=== PATIENT | male | born 1980 | race American Indian/Alaskan Native ===

== ENCOUNTER 2020-09-01 10:27 | Emergency (ER) | payer SELFPAY ==
[2020-09-01 10:37] VITALS: BP 160/105
--- NOTE | 2020-09-01 10:41 | Emergency Department Report ---
Blank Doc - Documentation Documentation: 40-year-old male that presents with abdominal pain with n/v. This initial assessment/diagnostic orders/clinical plan/treatment(s) is/are subject to change based on patient's health status, clinical progression and re- assessment by fellow clinical providers in the ED. Further treatment and workup at subsequent clinical providers discretion. Patient/guardians urged not to elope from the ED as their condition may be serious if not clinically assessed and managed. Initial orders include: 1- Patient sent to [facility] for further evaluation and treatment 2- labs 3- UA
[2020-09-01 11:28] LABS: Basophils % (Auto) 0.5 % (0.0-1.8); Eosinophils % (Auto) 0.1 % (0.0-4.3); Hematocrit 53.4 % (35.5-45.6); Lymphocytes # (Auto) 2.8 K/mm3 (1.2-5.4); Mean Corpuscular HGB Conc 34 % (32-34); Mean Corpuscular Volume 99 fl (84-94); Monocytes % (Auto) 9.6 % (0.0-7.3); Platelet Count 190 K/mm3 (140-440); Red Blood Count 5.41 M/mm3 (3.65-5.03); Red Cell Distribution Width 13.6 % (13.2-15.2)
[2020-09-01] MEDS ORDERED: ONDANSETRON 4 MG/2 ML INJ IV ONE ×2 (11:34→23:45)
--- NOTE | 2020-09-01 11:37 | Emergency Department Report ---
<JUAN JOHNSON - Last Filed: 09/01/20 18:29> ED Abdominal Pain HPI - General Chief Complaint: Abdominal Pain Stated Complaint: INTENSE ACID REFLUX PAIN Time Seen by Provider: 09/01/20 10:39 Source: patient Mode of arrival: Ambulatory Limitations: No Limitations - History of Present Illness Initial Comments: 40-year-old -[place] male presents to the emergency room complaining of nausea vomiting abdominal pain, sore throat headache and body aches. Patient denies any EtOH use. He denies any fever or chills but does admit to hot and cold sweats. Patient states he has a history of gastritis and will be taking Pr ilosec and Nexium at home. Patient does admit to smoking weed daily and hot showers does make it better. Patient denies any primary care provider at this time. MD Complaint: abdominal pain Location: diffuse Radiation: none Migration to: no migration Severity scale (0 -10): 9 Quality: sharp, burning Consistency: intermittent Improves With: nothing Worsens With: eating Associated Symptoms: nausea, vomiting - Related Data Previous Rx's Medication Instructions Recorded Last Taken Type Dicyclomine [Bentyl] 20 mg PO Q6H PRN #30 tablet 09/01/20 Unknown Rx Famotidine [Pepcid] 20 mg PO BID #60 tablet 09/01/20 Unknown Rx Omeprazole 40 mg PO DAILY #30 capsule.dr 09/01/20 Unknown Rx Ondansetron [Zofran Odt] 4 mg PO Q6HR PRN #24 tab.rapdis 09/01/20 Unknown Rx Promethazine [Phenergan] 25 mg [place] Q6HR PRN #12 supp.rect 09/01/20 Unknown Rx Allergies Allergy/AdvReac Type Severity Reaction Status Date / Time No Known Allergies Allergy Verified 09/01/20 10:37 ED Review of Systems Comment: All other systems reviewed and negative ED Past Medical Hx - Past Medical History Previous Medical History?: No - Surgical History Past Surgical History?: No - Social History Smoking Status: Never Smoker Substance Use Type: None - Medications Home Medications: Home Medications Medication Instructions Recorded Confirmed Last Taken Type Dicyclomine [Bentyl] 20 mg PO Q6H PRN #30 tablet 09/01/20 Unknown Rx Famotidine [Pepcid] 20 mg PO BID #60 tablet 09/01/20 Unknown Rx Omeprazole 40 mg PO DAILY #30 capsule.dr 09/01/20 Unknown Rx Ondansetron [Zofran Odt] 4 mg PO Q6HR PRN #24 tab.rapdis 09/01/20 Unknown Rx Promethazine [Phenergan] 25 mg [place] Q6HR PRN #12 supp.rect 09/01/20 Unknown Rx ED Physical Exam - General Limitations: No Limitations General appearance: alert, in no apparent distress - Head Head exam: Present: atraumatic, normocephalic - Eye Eye exam: Present: normal appearance - ENT ENT exam: Present: mucous membranes moist - Neck Neck exam: Present: normal inspection - Respiratory Respiratory exam: Present: normal lung sounds bilaterally. Absent: respiratory distress - Cardiovascular Cardiovascular Exam: Present: regular rate, normal rhythm. Absent: systolic murmur, diastolic murmur, rubs, gallop - GI/Abdominal GI/Abdominal exam: Present: soft. Absent: distended, tenderness, guarding ED Medical Decision Making - Lab Data Result diagrams: 09/01/20 11:15 09/01/20 11:15 Laboratory Results - last 72 hr 09/01/20 09/01/20 09/01/20 11:15 11:15 11:15 WBC 10.3 RBC 5.41 H Hgb 18.0 H Hct 53.4 H MCV 99 H MCH 33 H MCHC 34 RDW 13.6 Plt Count 190 Lymph % (Auto) 27.0 [place] % (Auto) 9.6 H Eos % (Auto) 0.1 Baso % (Auto) 0.5 Lymph # (Auto) 2.8 [place] # (Auto) 1.0 H Eos # (Auto) 0.0 Baso # (Auto) 0.0 Seg Neutrophils % 62.8 Seg Neutrophils # 6.5 Sodium 138 Potassium 3.5 L Chloride 90.9 L Carbon Dioxide 35 H Anion Gap 16 BUN 6 L Creatinine 0.9 Estimated GFR > 60 BUN/Creatinine Ratio 7 Glucose 120 H Calcium 9.8 Total Bilirubin 1.20 AST 41 H ALT 32 Alkaline Phosphatase 72 Total Creatine Kinase 122 Total Protein 9.3 H Albumin 4.3 Albumin/Globulin Ratio 0.9 Lipase 17 Urine Color Urine Turbidity Urine pH Ur Specific [place] Urine Protein Urine Glucose (UA) Urine Ketones Urine Blood Urine Nitrite Urine Bilirubin Urine Ictotest Urine Urobilinogen Ur Leukocyte Esterase Urine WBC (Auto) Urine RBC (Auto) U Epithel Cells (Auto) Hyaline Casts Urine Mucus Urine Opiates Screen Urine Methadone Screen Ur Barbiturates Screen Ur Phencyclidine Scrn Ur Amphetamines Screen U Benzodiazepines Scrn Urine Cocaine Screen U Marijuana (THC) Screen Drugs of Abuse Note 09/01/20 09/01/20 Unknown Unknown WBC RBC Hgb Hct MCV MCH MCHC RDW Plt Count Lymph % (Auto) [place] % (Auto) Eos % (Auto) Baso % (Auto) Lymph # (Auto) [place] # (Auto) Eos # (Auto) Baso # (Auto) Seg Neutrophils % Seg Neutrophils # Sodium Potassium Chloride Carbon Dioxide Anion Gap BUN Creatinine Estimated GFR BUN/Creatinine Ratio Glucose Calcium Total Bilirubin AST ALT Alkaline Phosphatase Total Creatine Kinase Total Protein Albumin Albumin/Globulin Ratio Lipase Urine Color Vanessa Urine Turbidity Clear Urine pH 6.0 Ur Specific [place] 1.024 Urine Protein 30 mg/dl Urine Glucose (UA) Neg Urine Ketones Neg Urine Blood Neg Urine Nitrite Neg Urine Bilirubin Sm Urine Ictotest Negative Urine Urobilinogen 4.0 Ur Leukocyte Esterase Neg Urine WBC (Auto) 3.0 Urine RBC (Auto) 1.0 U Epithel Cells (Auto) < 1.0 Hyaline Casts 1 Urine Mucus 1+ Urine Opiates Screen Negative Urine Methadone Screen Negative Ur Barbiturates Screen Negative Ur Phencyclidine Scrn Negative Ur Amphetamines Screen Positive U Benzodiazepines Scrn Negative Urine Cocaine Screen Negative U Marijuana (THC) Screen Positive Drugs of Abuse Note Disclamer - Medical Decision Making 40-year-old -[place]wegian male presents to the emergency room complaining of nausea vomiting abdominal pain, sore throat headache and body aches. Patient denies any EtOH use. He denies any fever or chills but does admit to hot and cold sweats. Patient states he has a history of gastritis and will be taking Prilosec and Nexium at home. Patient does admit to smoking weed daily and hot showers does make it better. Patient denies any primary care provider at this time. Labs have been ordered CBC, CMP, urinalysis, UDS and CK. Patient be given IV with 2000 L of normal saline, Zofran 4 mg IV and morphine 4 mg IV for pain management. Several attempts have been made to try to obtain IV access. IV team was called and they were not able to successfully place an INT. Patient has been given Zofran IM in ODT. Patient labs show positive for cannabis and amphetamine use. Another attempt to give Zofran IM as well as morphine 4 mg. We will attempt to do another p.o. challenge. ED Disposition Clinical Impression: Viral gastroenteritis, Nausea and vomiting in adult patient, Substance abuse, continuous GERD (gastroesophageal reflux disease) Qualifiers: Esophagitis presence: without esophagitis Qualified Code(s): K21.9 - Gastro- esophageal reflux disease without esophagitis Disposition: TO HOME OR SELFCARE Condition: Stable Instructions: Gastroenteritis (ED), Acute Nausea and Vomiting (ED), Polysubstance Abuse (ED) Additional Instructions: Maintain a clear liquid diet for 12 to 24 hours, take medication as needed for nausea and vomiting and pain as well as antacids. Follow-up with your primary care physician in 3 to 5 days for reevaluation. Return to the ED immediately if symptoms get worse. Consider quitting illegal drug use. Prescriptions: Dicyclomine [Bentyl] 20 mg PO Q6H PRN #30 tablet PRN Reason: Abdominal pain Omeprazole 40 mg PO DAILY #30 capsule. Famotidine [Pepcid] 20 mg PO BID #60 tablet Promethazine [Phenergan] 25 mg [place] Q6HR PRN #12 supp.rect PRN Reason: Nausea And Vomiting Ondansetron [Zofran Odt] 4 mg PO Q6HR PRN #24 tab.rapdis PRN Reason: Nausea Referrals: [facility] [Provider Group] - 3-5 Days Print Language: ICELANDIC <KAIA NAM - Last Filed: 09/01/20 23:53> ED Abdominal Pain HPI - History of Present Illness -: Sudden ED Review of Systems ROS: Stated complaint: INTENSE ACID REFLUX PAIN Other details as noted in HPI ED Course Vital Signs 09/01/20 10:35 Temperature 98.9 F Pulse Rate 53 L Respiratory 18 Rate Blood Pressure 160/105 O2 Sat by Pulse 92 Oximetry ED Medical Decision Making - Lab Data Result diagrams: 09/01/20 11:15 09/01/20 11:15 - Medical Decision Making Assumed care of the patient from Martita OMALLEY at shift change at 2200 hrs. Patient had presented to the ED with acute onset intractable nausea and vomiting with epigastric pain with diffuse body aches. Labs were reviewed and showed significant amphetamines and THC in urinalysis. Other lab test results are unremarkable. Patient was treated extensively in the ED with pain medications and antiemetics, and also received normal saline 1 L IV bolus x1. On reevaluation, patient's nausea and vomiting is well controlled medications. Patient fell asleep in the ED although was arousable, and also passed oral fluid challenge. Patient was discharged home and advised to consider going for drug rehab in order to help him quit using methamphetamines and THC's. Patient was advised to follow-up with his primary care physician in 3 to 5 days for reevaluation or return to the ED immediately if symptoms get worse. - Differential Diagnosis Dehydration; gastritis; drug abuse; GERD; gastroenteritis Critical care attestation.: If time is entered above; I have spent that time in minutes in the direct care of this critically ill patient, excluding procedure time. ED Disposition Is pt being admited?: No Does the pt Need Aspirin: No Time of Disposition: 23:52
[2020-09-01 11:45] LABS: Alanine Aminotransferase 32 units/L (7-56); Albumin 4.3 g/dL (3.9-5); BUN/Creatinine Ratio 7; Blood Urea Nitrogen 6 mg/dL (9-20); Calcium 9.8 mg/dL (8.4-10.2); Hemolysis Index 67
[2020-09-01 11:47] LABS: Bilirubin,Urine SM (Negative); Blood,Urine NEG (Negative); Color,Urine Amber (Yellow); Hyaline Casts,Urine 1 /LPF; Mucus,Urine 1+ /HPF
[2020-09-01 11:55] LABS: Benzodiazepines Screen,Urine Negative; Cocaine Screen,Urine Negative; Methadone Screen,Urine Negative; Opiate Screen,Urine Negative
[2020-09-01 11:59] LABS: Ictotest,Urine Negative (Negative)
[2020-09-01 12:13] LABS: Amphetamine Screen,Urine Positive; Cannabinoid Screen,Urine Positive
[2020-09-01] MEDS ORDERED: ONDANSETRON 4 MG ODT TAB PO ONE ×2 (13:32→15:54)
[2020-09-01] MEDS ORDERED: LORazepam 2 MG/ML VIAL IM ONE (13:33)
[2020-09-01] MEDS ORDERED: MORPHINE 4 MG/1 ML INJ IM ONE (18:23)
[2020-09-01] MEDS: MORPHINE 4 MG/1 ML INJ IV ONE ×2 (18:36→19:17)
[2020-09-01] MEDS: SODIUM CHLORIDE 0.9% 1000 ML 2,000 ML IV ONE ×2 (19:17→21:32)
[2020-09-01] MEDS ORDERED: SODIUM CHLORIDE 0.9% 1000 ML 1,000 ML ONE (21:32)
[2020-09-01] MEDS ORDERED: METOCLOPRAMIDE 10 MG/2 ML INJ IV ONE (22:01)
[2020-09-01] MEDS ORDERED: diphenhydrAMINE 50 MG/ML VIAL IV ONE (22:01)
[2020-09-01] MEDS ORDERED: METOCLOPRAMIDE 10 MG/2 ML INJ ONE (22:03)
[2020-09-01] MEDS ORDERED: diphenhydrAMINE 50 MG/ML VIAL ONE (22:03)
[2020-09-01] MEDS ORDERED: MORPHINE 4 MG/1 ML INJ IV ONE (23:45)
== END 2020-09-02 01:00 | disposition home or self-care (01) ==
LOC: ED 10:27
DX: K21.9 Gastro-esophageal reflux disease without esophagitis (principal); A08.39 Other viral enteritis; Z79.899 Other long term (current) drug therapy
CPT/HCPCS: 36415; 80053; 80307; 81001; 82550; 83690; 85025; 96361; 96374; 96375; 96376; 99283; J1200; J2060; J2270; J2405; J2765; J7030; Q0162